=== PATIENT | female | born 1955 | race Caucasian/White ===

== ENCOUNTER 2016-07-15 09:13 | Outpatient (CLI) | payer OTHER ==
[~2016-07-15 09:13] MED LIST: BUPROPION HCL150 M3 PO; CALCIUM PO; NATURE-THROI81.25 MG PO; UNISOM25 MG; VITAMIN C500 M1 PO; VITAMIN D-31000 UNIT PO; [UNRECOGNIZED DRUG - OTHER] PO
--- NOTE | 2016-07-15 11:28 | DIAGNOSTIC IMAGING REPORT ---
PROCEDURE: MG BILATERAL SCREENING W/CAD INDICATION: SCREENING TECHNIQUE: Bilateral CC and MLO digital views. COMPARISON: Compared to 03/12/2015, 04/17/2014, and 04/06/2013. FINDINGS: Computer-aided detection applied. Mildly dense. No change. IMPRESSION: 1. Negative mammogram. RESULT CODE: 1- Negative. A. A negative report should not delay biopsy if a dominant or clinically suspicious mass is present. 10-15% of cancers are not identified by x-ray. B. A negative report may reinforce clinical impression. C. Adenosis and dense breasts may obscure an underlying neoplasm. D. False positive reports average 6-10%. E.. A yearly screening mammogram is recommended. A reminder letter will be scheduled.
== END 2016-07-15 23:00 ==
LOC: MAM SRH 09:13
DX: Z12.31 Encounter for screening mammogram for malignant neoplasm of breast (principal)